=== PATIENT | male | born 1960 | race Two or more races ===

== ENCOUNTER → 2020-04-12 06:28 | Outpatient (CLI) | payer OTHER | END | disposition home or self-care (01) | LOC: LAB 06:28 | PROVIDERS: ATTEND Internal Medicine Cardiovascular Disease | DX: M54.5 Low back pain (principal); I10 Essential (primary) hypertension; M17.0 Bilateral primary osteoarthritis of knee; E78.1 Pure hyperglyceridemia; E78.2 Mixed hyperlipidemia; E03.8 Other specified hypothyroidism; B20 Human immunodeficiency virus [HIV] disease; E11.9 Type 2 diabetes mellitus without complications; N39.0 Urinary tract infection, site not specified; N40.0 Benign prostatic hyperplasia without lower urinary tract symptoms; Z11.4 Encounter for screening for human immunodeficiency virus [HIV] ==

== ENCOUNTER 2020-04-13 07:35 | Outpatient (CLI) | payer OTHER | END 2020-04-13 15:00 | disposition home or self-care (01) | LOC: LAB 07:35 | PROVIDERS: ATTEND Internal Medicine Cardiovascular Disease | DX: N40.0 Benign prostatic hyperplasia without lower urinary tract symptoms (principal); N39.0 Urinary tract infection, site not specified; Z11.4 Encounter for screening for human immunodeficiency virus [HIV]; Z41.1 Encounter for cosmetic surgery; E11.9 Type 2 diabetes mellitus without complications; E03.8 Other specified hypothyroidism; B20 Human immunodeficiency virus [HIV] disease; I10 Essential (primary) hypertension; E78.1 Pure hyperglyceridemia; E78.2 Mixed hyperlipidemia ==

== ENCOUNTER 2020-06-30 07:21 | Outpatient (CLI) | payer OTHER | END 2020-06-30 08:00 | disposition home or self-care (01) | LOC: NUCLEAR 07:21 | PROVIDERS: ATTEND Internal Medicine Cardiovascular Disease | DX: I20.8 Other forms of angina pectoris (principal) | CPT/HCPCS: 78452; 93017; J0153; A9500 ==

== ENCOUNTER → 2021-01-30 07:56 | Outpatient (CLI) | payer OTHER | END | disposition home or self-care (01) | LOC: LAB 07:56 | PROVIDERS: ATTEND Internal Medicine Cardiovascular Disease | DX: I10 Essential (primary) hypertension (principal); E78.1 Pure hyperglyceridemia; E78.2 Mixed hyperlipidemia; M25.552 Pain in left hip ==

== ENCOUNTER → 2021-02-01 07:06 | Outpatient (CLI) | payer OTHER | END | disposition home or self-care (01) | LOC: LAB 07:06 | PROVIDERS: ATTEND Internal Medicine Cardiovascular Disease | DX: I10 Essential (primary) hypertension (principal); E78.2 Mixed hyperlipidemia; E11.9 Type 2 diabetes mellitus without complications ==

== ENCOUNTER → 2021-05-28 07:41 | Outpatient (CLI) | payer OTHER | END | disposition home or self-care (01) | LOC: LAB 07:41 | PROVIDERS: ATTEND Internal Medicine Cardiovascular Disease | DX: N39.0 Urinary tract infection, site not specified (principal); Z12.11 Encounter for screening for malignant neoplasm of colon; N41.8 Other inflammatory diseases of prostate; U07.1 COVID-19; A64 Unspecified sexually transmitted disease; B19.20 Unspecified viral hepatitis C without hepatic coma; B66 Other fluke infections ==